=== PATIENT | male | born 1955 | race Caucasian/White ===

== ENCOUNTER 2022-01-05 13:30 | Outpatient (RCR) | payer BC | END 2022-01-13 | disposition home or self-care (01) | LOC: WSOT | DX: S63.40 Traumatic rupture of unspecified ligament of finger at metacarpophalangeal and interphalangeal joint (principal); X58.XXXD Exposure to other specified factors, subsequent encounter ==

== ENCOUNTER 2022-02-11 13:30 | Outpatient (RCR) | payer BC | END 2022-02-12 | disposition home or self-care (01) | LOC: WSOT | DX: S63.40 Traumatic rupture of unspecified ligament of finger at metacarpophalangeal and interphalangeal joint (principal); X58.XXXD Exposure to other specified factors, subsequent encounter ==

== ENCOUNTER 2022-03-02 14:45 | Outpatient (RCR) | payer BC | END 2022-03-15 | disposition still patient (30) | LOC: WSOT | DX: S63.40 Traumatic rupture of unspecified ligament of finger at metacarpophalangeal and interphalangeal joint (principal); X58.XXXD Exposure to other specified factors, subsequent encounter ==

== ENCOUNTER 2022-03-22 15:30 | Outpatient (RCR) | payer BC | END 2022-03-22 16:00 | disposition home or self-care (01) | LOC: WSOT 15:30 | DX: S63.40 Traumatic rupture of unspecified ligament of finger at metacarpophalangeal and interphalangeal joint (principal); X58.XXXD Exposure to other specified factors, subsequent encounter ==

== ENCOUNTER → 2022-12-14 | Outpatient (CLI) | payer MEDICARE, BC | LOC: COL.RAD 07:09 → EDBD 07:30 | DX: I77.811 Abdominal aortic ectasia (principal) ==